=== PATIENT | male | born 1970 | race African-American/Black ===

== ENCOUNTER 2020-02-20 18:48 | Inpatient (IN) ==
[2020-02-20] MEDS ORDERED: SODIUM CHLORIDE 0.9% 500 ML IV STA (19:34)
[2020-02-20 19:43] LABS: Basophils % 0.9 % (0.0-0.8); Hemoglobin 14.5 GM/DL (14.0-18.0); Immature Granulocytes % 0.2 %; Immature Granulocytes Absolute 0.01 #; Lymphocytes # 1.9 10*3/uL (1.4-4.0); Lymphocytes % 43.6 % (21.2-54.2); Mean Corpuscular Volume 83.2 FL (87-102); Mean Platelet Volume 10.5 FL (9.6-12.0); Monocytes % 7.7 % (1.7-12.7); Neutrophils % 47.6 % (38.7-73.9); Platelet Count 202 T/CUMM (130-400); Red Blood Count 5.29 MC/CUMM (3.8-5.5); Red Cell Distribution Width 12.9 % (9.3-17.3); White Blood Count 4.4 T/CUMM (4-12)
[2020-02-20 20:07] LABS: Alanine Aminotransferase 33 U/L (16-61); Albumin 3.8 G/DL (3.4-5.0); Alkaline Phosphatase 65 U/L (45-117); Aspartate Amino Transferase 31 U/L (0-37); Bilirubin,Total < 0.39 MG/DL (0.2-1.0); Blood Urea Nitrogen 14 MG/DL (7-18); Calcium 8.5 MG/DL (8.5-10.1); Estimated Glom Filtration Rate 82 ML/MIN; Glucose 233 MG/DL (74-106); Osmolality,Calculated 275.2 MOS/KG (273-304); Total Protein 8.2 G/DL (6.4-8.3)
[2020-02-20 20:10] LABS: PT Patient Result 10.7 SECS (9.8-11.9)
[2020-02-20 20:12] LABS: Apearance,Urine CLEAR (Clear); Bilirubin,Urine Negative (Negative); Blood, Urine Negative (Negative); Glucose,Urine (UA) 150 mg/dL (Negative); Hyaline Casts,Urine 4 /LPF (0-3); Ketones,Urine 5 mg/dL (Negative); Mucus,Urine Occasional /LPF (Occasional); Nitrite,Urine Negative (Negative); Protein,Urine >=500 MG/DL; Squamous Epithelial Cell,Urine Occasional /HPF (0-10); Urine Color Yellow (Yellow); Urine Specific Gravity 1.027 (1.001-1.035); Urine Urobilinogen < 2.0 EU/DL (0.2-1.0)
[2020-02-20 20:35] LABS: Lymphocytes 42 % (20-55); Myelocytes 2 %; Platelet Estimate Normal; Segmented Neutrophils 51 % (50-85); Total Cells Counted 100
[2020-02-20] MEDS ORDERED: ACETAMINOPHEN 500 MG TABLET PO STA (21:03)
[2020-02-20] MEDS ORDERED: cefTRIAXone 1,000 MG in SODIUM CHLORIDE 0.9% 100 ML IV STA (21:12)
[2020-02-20] MEDS ORDERED: ONDANSETRON 4 MG/2 ML VIAL IV STA (21:47)
[2020-02-20] MEDS ORDERED: GLUCAGON 1 MG VIAL IM PRN (22:10)
[2020-02-20] MEDS ORDERED: DEXTROSE 50% 25 GM/50 ML VIAL IV PRN (22:10)
[2020-02-20] MEDS ORDERED: ALUMINUM/MAGNES/SIMETH MAX STR 30 ML UDCUP PO PRN (22:10)
[2020-02-20] MEDS ORDERED: DEXTROSE 10% 250 ML BAG IV PRN (22:10)
[2020-02-20] MEDS: DOXYCYCLINE HYCLATE INJ 100 MG in SODIUM CHLORIDE 0.9% 100 ML IV SCH (22:53)
[2020-02-20] MEDS: ENOXAPARIN 40 MG/0.4 ML SYRINGE SUBCUT SCH (22:55)
[2020-02-20] MEDS: INSULIN REGULAR 100 UNIT/ML SUBCUT SCH (23:15)
[2020-02-21] MEDS: ALBUTEROL INHALER 18 GM INH SCH ×3 (06:42→22:00)
[2020-02-21 07:06] LABS: Basophils % 0.2 % (0.0-0.8); Hemoglobin 14.2 GM/DL (14.0-18.0); Immature Granulocytes % 0.2 %; Immature Granulocytes Absolute 0.01 #; Lymphocytes % 39.2 % (21.2-54.2); Mean Corpuscular HGB Conc 32.3 GM/DL (32-36); Mean Corpuscular Volume 85.1 FL (87-102); Mean Platelet Volume 10.8 FL (9.6-12.0); Monocytes % 6.3 % (1.7-12.7); Neutrophils % 54.1 % (38.7-73.9); Platelet Count 198 T/CUMM (130-400); Red Blood Count 5.17 MC/CUMM (3.8-5.5); White Blood Count 5.1 T/CUMM (4-12)
[2020-02-21] MEDS: INSULIN REGULAR 100 UNIT/ML SUBCUT SCH ×4 (07:15→22:03)
[2020-02-21 07:21] LABS: Risk Ratio 3.34; VLDL CHOLESTEROL 28.8 MG/DL
[2020-02-21 07:28] LABS: Hypochromasia 1+; Lymphocytes 39 % (20-55); Microcytosis Slight; Platelet Estimate Adequate; Segmented Neutrophils 55 % (50-85); Total Cells Counted 100
[2020-02-21 07:29] LABS: Atypical Lymphocytes Few
[2020-02-21 09:25] LABS: Alanine Aminotransferase 29 U/L (16-61); Albumin 3.3 G/DL (3.4-5.0); Alkaline Phosphatase 59 U/L (45-117); Aspartate Amino Transferase 30 U/L (0-37); Bilirubin,Total < 0.39 MG/DL (0.2-1.0); Blood Urea Nitrogen 14 MG/DL (7-18); Calcium 8.4 MG/DL (8.5-10.1); Estimated Glom Filtration Rate 76 ML/MIN; Ferritin 517.6 ng/ml (26-388); Glucose 186 MG/DL (74-106); Osmolality,Calculated 271.4 MOS/KG (273-304); Total Protein 8.3 G/DL (6.4-8.3)
[2020-02-21] MEDS: HYDROXYCHLOROQUINE 200 MG TABLET PO SCH ×2 (11:08→22:00)
[2020-02-21] MEDS: ACETAMINOPHEN 325 MG TABLET PO PRN ×2 (11:55→22:10)
[2020-02-21] MEDS: DOXYCYCLINE HYCLATE INJ 100 MG in SODIUM CHLORIDE 0.9% 100 ML IV SCH (14:55)
[2020-02-21] MEDS: PROMETHAZINE 25 MG/1 ML VIAL IM PRN (18:01)
[2020-02-21] MEDS: cefTRIAXone 1,000 MG in SYRINGE 1 EACH IV SCH (22:00)
[2020-02-21] MEDS: ENOXAPARIN 40 MG/0.4 ML SYRINGE SUBCUT SCH (22:00)
[2020-02-22] MEDS: ALBUTEROL INHALER 18 GM INH SCH ×4 (02:11→22:17)
[2020-02-22] MEDS: DOXYCYCLINE HYCLATE INJ 100 MG in SODIUM CHLORIDE 0.9% 100 ML IV SCH (02:12)
[2020-02-22 04:40] LABS: Basophils % 0.3 % (0.0-0.8); Hematocrit 42.9 VOL% (42.0-52.0); Immature Granulocytes % 0.2 %; Immature Granulocytes Absolute 0.01 #; Lymphocytes # 1.8 10*3/uL (1.4-4.0); Lymphocytes % 27.6 % (21.2-54.2); Mean Corpuscular HGB Conc 32.6 GM/DL (32-36); Mean Platelet Volume 11.4 FL (9.6-12.0); Monocytes % 5.9 % (1.7-12.7); Platelet Count 201 T/CUMM (130-400); Red Blood Count 5.05 MC/CUMM (3.8-5.5); Red Cell Distribution Width 13.1 % (9.3-17.3); White Blood Count 6.7 T/CUMM (4-12)
[2020-02-22 05:01] LABS: Albumin 2.9 G/DL (3.4-5.0); Bilirubin,Total 0.6 MG/DL (0.2-1.0); Calcium 8.5 MG/DL (8.5-10.1); Ferritin 575.9 ng/ml (26-388); Osmolality,Calculated 274.2 MOS/KG (273-304); Total Protein 7.9 G/DL (6.4-8.3)
[2020-02-22 05:07] LABS: Hypochromasia Slight; Ovalocytes Slight; Platelet Estimate Adequate
[2020-02-22 05:08] LABS: Microcytosis Slight
[2020-02-22] MEDS: ACETAMINOPHEN 325 MG TABLET PO PRN ×3 (06:00→23:05)
[2020-02-22] MEDS ORDERED: ACETAMINOPHEN 500 MG TABLET PO ONE ×2 (06:23→16:07)
[2020-02-22 06:29] LABS: Sedimentation Rate-Westergren 24 MM/HR (0-15)
[2020-02-22 06:53] LABS: ABG Base Excess 0.6 MMOL/L (-2.5-2.5); ABG HCO3 24.9 MMOL/L (20-26); ABG PCO2 35.7 MM HG (35-48); ABG PO2 80.3 MM HG (80-95); ABG TCO2 20.8 MMOL/L (23-27)
[2020-02-22] MEDS ORDERED: ZINC SULFATE 220 MG CAPSULE PO SCH (09:00)
[2020-02-22] MEDS: INSULIN REGULAR 100 UNIT/ML SUBCUT SCH ×3 (09:00→16:37)
[2020-02-22] MEDS ORDERED: HYDROXYCHLOROQUINE 200 MG TABLET PO SCH (09:00)
[2020-02-22] MEDS: DOXYCYCLINE HYCLATE 100 MG CAPSULE PO SCH (16:37)
[2020-02-22] MEDS: PROMETHAZINE 25 MG/1 ML VIAL IM PRN (16:50)
[2020-02-22] MEDS: ENOXAPARIN 40 MG/0.4 ML SYRINGE SUBCUT SCH (22:16)
[2020-02-22] MEDS: cefTRIAXone 1,000 MG in SYRINGE 1 EACH IV SCH (22:24)
[2020-02-23] MEDS: INSULIN REGULAR 100 UNIT/ML SUBCUT SCH ×5 (01:46→21:57)
[2020-02-23] MEDS: ALBUTEROL INHALER 18 GM INH SCH ×4 (01:47→21:22)
[2020-02-23 03:58] LABS: Allen Test Positive; Pt O2 Delivery Device Room Air
[2020-02-23 03:59] LABS: ABG HCO3 21.7 MMOL/L (20-26); ABG Oxygen Saturation 94.2 % (95-100); ABG PCO2 30.6 MM HG (35-48); ABG PH 7.469 (7.35-7.45); ABG TCO2 22.7 MMOL/L (23-27)
[2020-02-23 06:09] LABS: Basophils % 0.4 % (0.0-0.8); Hematocrit 42.3 VOL% (42.0-52.0); Hemoglobin 14.1 GM/DL (14.0-18.0); Immature Granulocytes % 0.4 %; Immature Granulocytes Absolute 0.03 #; Lymphocytes % 23.6 % (21.2-54.2); Mean Corpuscular HGB Conc 33.3 GM/DL (32-36); Mean Corpuscular Volume 82.3 FL (87-102); Mean Platelet Volume 11.6 FL (9.6-12.0); Monocytes % 5.4 % (1.7-12.7); Neutrophils % 70.2 % (38.7-73.9); Platelet Count 199 T/CUMM (130-400); Red Blood Count 5.14 MC/CUMM (3.8-5.5); Red Cell Distribution Width 13.1 % (9.3-17.3); White Blood Count 8.3 T/CUMM (4-12)
[2020-02-23] MEDS ORDERED: ACETAMINOPHEN 500 MG TABLET PO ONE (06:28)
[2020-02-23 06:40] LABS: Band Neutrophils 6 % (0-10); Lymphocytes 19 % (20-55); Platelet Estimate Normal; Segmented Neutrophils 69 % (50-85); Smudge Cells Few; Total Cells Counted 100
[2020-02-23] MEDS: PROMETHAZINE 25 MG/1 ML VIAL IM PRN (07:17)
[2020-02-23 07:25] LABS: Sedimentation Rate-Westergren 10 MM/HR (0-15)
[2020-02-23 07:49] LABS: Albumin 2.7 G/DL (3.4-5.0); Bilirubin,Total 0.6 MG/DL (0.2-1.0); Calcium 8.2 MG/DL (8.5-10.1); Osmolality,Calculated 277.4 MOS/KG (273-304); Total Protein 7.8 G/DL (6.4-8.3)
[2020-02-23] MEDS: DOXYCYCLINE HYCLATE 100 MG CAPSULE PO SCH ×2 (08:59→17:52)
[2020-02-23] MEDS ORDERED: INSULIN GLARGINE 100 UNIT/ML SUBCUT SCH (09:00)
[2020-02-23 09:09] LABS: Ferritin 731.8 ng/ml (26-388)
[2020-02-23] MEDS: TAMSULOSIN 0.4 MG CAPSULE PO SCH (11:09)
[2020-02-23] MEDS: ACETAMINOPHEN 325 MG TABLET PO SCH ×3 (14:10→21:22)
[2020-02-23] MEDS: SODIUM CHLORIDE 0.9% 1,000 ML IV SCH ×2 (14:10→21:28)
[2020-02-23] MEDS: ENOXAPARIN 40 MG/0.4 ML SYRINGE SUBCUT SCH (21:22)
[2020-02-23] MEDS: cefTRIAXone 1,000 MG in SYRINGE 1 EACH IV SCH (21:29)
[2020-02-24] MEDS: ALBUTEROL INHALER 18 GM INH SCH ×4 (01:41→20:12)
[2020-02-24 04:32] LABS: ABG Base Excess -0.6 MMOL/L (-2.5-2.5); ABG HCO3 23.9 MMOL/L (20-26); ABG Oxygen Saturation 96.3 % (95-100); ABG PCO2 33.7 MM HG (35-48); ABG TCO2 19.8 MMOL/L (23-27); Allen Test Positive
[2020-02-24] MEDS: ACETAMINOPHEN 325 MG TABLET PO PRN (05:30)
[2020-02-24] MEDS: SODIUM CHLORIDE 0.9% 1,000 ML IV SCH (05:43)
[2020-02-24 06:37] LABS: Basophils % 0.2 % (0.0-0.8); Hematocrit 38.8 VOL% (42.0-52.0); Immature Granulocytes % 0.9 %; Immature Granulocytes Absolute 0.09 #; Lymphocytes # 1.8 10*3/uL (1.4-4.0); Mean Corpuscular HGB Conc 33.5 GM/DL (32-36); Monocytes % 3.6 % (1.7-12.7); Neutrophils % 78.3 % (38.7-73.9); Platelet Count 236 T/CUMM (130-400); Red Blood Count 4.73 MC/CUMM (3.8-5.5); Red Cell Distribution Width 13.2 % (9.3-17.3); White Blood Count 10.4 T/CUMM (4-12)
[2020-02-24 07:02] LABS: Albumin 2.2 G/DL (3.4-5.0); Bilirubin,Total 0.6 MG/DL (0.2-1.0); Calcium 7.6 MG/DL (8.5-10.1); Ferritin 881.5 ng/ml (26-388); Osmolality,Calculated 277.2 MOS/KG (273-304); Total Protein 7.4 G/DL (6.4-8.3)
[2020-02-24 07:23] LABS: Lymphocytes 14 % (20-55); Platelet Estimate Adequate; Segmented Neutrophils 77 % (50-85); Total Cells Counted 100
[2020-02-24 07:40] LABS: Sedimentation Rate-Westergren 46 MM/HR (0-15)
[2020-02-24] MEDS: DOXYCYCLINE HYCLATE 100 MG CAPSULE PO SCH ×2 (10:02→17:26)
[2020-02-24] MEDS: TAMSULOSIN 0.4 MG CAPSULE PO SCH (10:02)
[2020-02-24] MEDS: INSULIN REGULAR 100 UNIT/ML SUBCUT SCH ×4 (12:28→20:37)
[2020-02-24] MEDS: ACETAMINOPHEN 325 MG TABLET PO SCH ×3 (12:39→21:23)
[2020-02-24] MEDS: INSULIN GLARGINE 100 UNIT/ML SUBCUT SCH (17:00)
[2020-02-24] MEDS: cefTRIAXone 1,000 MG in SYRINGE 1 EACH IV SCH (21:23)
[2020-02-24] MEDS: ENOXAPARIN 40 MG/0.4 ML SYRINGE SUBCUT SCH (22:50)
[2020-02-25] MEDS: ALBUTEROL INHALER 18 GM INH SCH ×4 (00:42→18:00)
[2020-02-25 04:21] LABS: ABG Base Excess 0.4 MMOL/L (-2.5-2.5); ABG HCO3 24.9 MMOL/L (20-26); ABG Oxygen Saturation 94.4 % (95-100); ABG PCO2 39.6 MM HG (35-48); ABG PH 7.416 (7.35-7.45); ABG PO2 73.5 MM HG (80-95); ABG TCO2 26.1 MMOL/L (23-27); Allen Test Positive
[2020-02-25 06:41] LABS: Basophils % 0.6 % (0.0-0.8); Eosinophils # 0.1 10*3/uL (0.0-0.87); Eosinophils % 0.7 % (0.00-10.9); Hematocrit 38.5 VOL% (42.0-52.0); Hemoglobin 12.4 GM/DL (14.0-18.0); Immature Granulocytes % 0.7 %; Immature Granulocytes Absolute 0.05 #; Lymphocytes # 1.5 10*3/uL (1.4-4.0); Lymphocytes % 21.1 % (21.2-54.2); Mean Corpuscular HGB Conc 32.2 GM/DL (32-36); Mean Platelet Volume 10.8 FL (9.6-12.0); Monocytes % 6.7 % (1.7-12.7); Neutrophils % 70.2 % (38.7-73.9); Platelet Count 252 T/CUMM (130-400); Red Blood Count 4.53 MC/CUMM (3.8-5.5); Red Cell Distribution Width 13.3 % (9.3-17.3); White Blood Count 6.9 T/CUMM (4-12)
[2020-02-25] MEDS: SODIUM CHLORIDE 0.9% 1,000 ML IV SCH ×5 (07:11→17:04)
[2020-02-25 07:27] LABS: Alanine Aminotransferase 36 U/L (16-61); Albumin 1.9 G/DL (3.4-5.0); Alkaline Phosphatase 50 U/L (45-117); Aspartate Amino Transferase 60 U/L (0-37); Bilirubin,Total < 0.39 MG/DL (0.2-1.0); Blood Urea Nitrogen 26 MG/DL (7-18); Calcium 7.8 MG/DL (8.5-10.1); Estimated Glom Filtration Rate 82 ML/MIN; Glucose 109 MG/DL (74-106); Total Protein 6.9 G/DL (6.4-8.3)
[2020-02-25] MEDS: TAMSULOSIN 0.4 MG CAPSULE PO SCH (08:34)
[2020-02-25] MEDS: INSULIN REGULAR 100 UNIT/ML SUBCUT SCH ×4 (08:34→21:57)
[2020-02-25] MEDS: ACETAMINOPHEN 325 MG TABLET PO SCH ×3 (08:34→21:35)
[2020-02-25] MEDS: INSULIN GLARGINE 100 UNIT/ML SUBCUT SCH (08:34)
[2020-02-25] MEDS: DOXYCYCLINE HYCLATE 100 MG CAPSULE PO SCH ×2 (08:34→16:05)
[2020-02-25 08:37] LABS: Sedimentation Rate-Westergren 85 MM/HR (0-15)
[2020-02-25 12:33] LABS: Lymphocytes 18 % (20-55); Platelet Estimate Normal; Segmented Neutrophils 78 % (50-85)
[2020-02-25 12:34] LABS: Total Cells Counted 100
[2020-02-25] MEDS: ASCORBIC ACID 500 MG TABLET PO SCH (21:35)
[2020-02-25] MEDS: ENOXAPARIN 40 MG/0.4 ML SYRINGE SUBCUT SCH (21:57)
[2020-02-25] MEDS: cefTRIAXone 1,000 MG in SYRINGE 1 EACH IV SCH (22:20)
[2020-02-26] MEDS: ALBUTEROL INHALER 18 GM INH SCH ×4 (01:06→20:18)
[2020-02-26] MEDS: SODIUM CHLORIDE 0.9% 1,000 ML IV SCH ×2 (03:30→16:33)
[2020-02-26 05:10] LABS: ABG Base Excess 0.6 MMOL/L (-2.5-2.5); ABG HCO3 24.9 MMOL/L (20-26); ABG PCO2 38.5 MM HG (35-48); ABG PH 7.419 (7.35-7.45); ABG PO2 70.6 MM HG (80-95); Allen Test Positive
[2020-02-26 06:27] LABS: Basophils % 0.7 % (0.0-0.8); Eosinophils # 0.1 10*3/uL (0.0-0.87); Eosinophils % 1.6 % (0.00-10.9); Hematocrit 37.1 VOL% (42.0-52.0); Hemoglobin 11.8 GM/DL (14.0-18.0); Immature Granulocytes % 0.7 %; Immature Granulocytes Absolute 0.04 #; Lymphocytes # 1.4 10*3/uL (1.4-4.0); Lymphocytes % 25.5 % (21.2-54.2); Mean Corpuscular HGB Conc 31.8 GM/DL (32-36); Mean Corpuscular Volume 85.3 FL (87-102); Mean Platelet Volume 10.7 FL (9.6-12.0); Monocytes % 8.4 % (1.7-12.7); Neutrophils % 63.1 % (38.7-73.9); Platelet Count 294 T/CUMM (130-400); Red Blood Count 4.35 MC/CUMM (3.8-5.5); Red Cell Distribution Width 13.2 % (9.3-17.3); White Blood Count 5.5 T/CUMM (4-12)
[2020-02-26 06:49] LABS: Alanine Aminotransferase 40 U/L (16-61); Albumin 1.8 G/DL (3.4-5.0); Alkaline Phosphatase 57 U/L (45-117); Aspartate Amino Transferase 56 U/L (0-37); Bilirubin,Total < 0.39 MG/DL (0.2-1.0); Blood Urea Nitrogen 25 MG/DL (7-18); Estimated Glom Filtration Rate 65 ML/MIN; Ferritin 943.1 ng/ml (26-388); Glucose 126 MG/DL (74-106); Osmolality,Calculated 278.8 MOS/KG (273-304); Total Protein 6.6 G/DL (6.4-8.3)
[2020-02-26 07:43] LABS: Sedimentation Rate-Westergren 97 MM/HR (0-15)
[2020-02-26] MEDS: INSULIN GLARGINE 100 UNIT/ML SUBCUT SCH (09:30)
[2020-02-26] MEDS: ZINC GLUCONATE 50 MG TABLET PO SCH (09:30)
[2020-02-26] MEDS: DOXYCYCLINE HYCLATE 100 MG CAPSULE PO SCH ×2 (09:30→16:50)
[2020-02-26] MEDS: CHOLECALCIFEROL 1,000 UNIT TABLET PO SCH (09:30)
[2020-02-26] MEDS: ACETAMINOPHEN 325 MG TABLET PO SCH ×3 (09:30→20:51)
[2020-02-26] MEDS: ASCORBIC ACID 500 MG TABLET PO SCH ×2 (09:30→20:51)
[2020-02-26] MEDS: TAMSULOSIN 0.4 MG CAPSULE PO SCH (09:30)
[2020-02-26] MEDS: PROMETHAZINE 25 MG/1 ML VIAL IM PRN (10:25)
[2020-02-26] MEDS: INSULIN REGULAR 100 UNIT/ML SUBCUT SCH ×4 (10:38→20:51)
[2020-02-26] MEDS ORDERED: ONDANSETRON 4 MG/2 ML VIAL IV PRN (10:53)
[2020-02-26 11:53] LABS: Anisocytosis 1+; Hypochromasia 1+; Microcytosis 1+; Polychromasia Slight; Schistocytes Slight
[2020-02-26 11:54] LABS: Platelet Estimate Adequate
[2020-02-26] MEDS: cefTRIAXone 1,000 MG in SYRINGE 1 EACH IV SCH (20:52)
[2020-02-26] MEDS: ENOXAPARIN 40 MG/0.4 ML SYRINGE SUBCUT SCH (20:53)
[2020-02-27] MEDS: ALBUTEROL INHALER 18 GM INH SCH ×4 (01:16→18:24)
[2020-02-27] MEDS: SODIUM CHLORIDE 0.9% 1,000 ML IV SCH ×3 (01:30→23:13)
[2020-02-27 04:59] LABS: ABG Base Excess -0.7 MMOL/L (-2.5-2.5); ABG HCO3 23.8 MMOL/L (20-26); ABG Oxygen Saturation 95.3 % (95-100); ABG PCO2 37.6 MM HG (35-48); ABG PH 7.406 (7.35-7.45); ABG PO2 78.8 MM HG (80-95); ABG TCO2 20.2 MMOL/L (23-27); Allen Test Positive
[2020-02-27 06:32] LABS: Basophils % 0.7 % (0.0-0.8); Eosinophils # 0.1 10*3/uL (0.0-0.87); Eosinophils % 1.8 % (0.00-10.9); Hematocrit 35.5 VOL% (42.0-52.0); Hemoglobin 11.3 GM/DL (14.0-18.0); Immature Granulocytes % 0.8 %; Immature Granulocytes Absolute 0.05 #; Lymphocytes # 1.5 10*3/uL (1.4-4.0); Mean Corpuscular HGB Conc 31.8 GM/DL (32-36); Mean Corpuscular Volume 86.4 FL (87-102); Mean Platelet Volume 10.1 FL (9.6-12.0); Monocytes % 8.7 % (1.7-12.7); Platelet Count 328 T/CUMM (130-400); Red Blood Count 4.11 MC/CUMM (3.8-5.5); Red Cell Distribution Width 13.3 % (9.3-17.3)
[2020-02-27 07:01] LABS: Atypical Lymphocytes Few; Eosinophils 5 % (0-10); Hypochromasia 1+; Lymphocytes 23 % (20-55); Microcytosis 1+; Segmented Neutrophils 66 % (50-85); Total Cells Counted 100
[2020-02-27 07:02] LABS: Platelet Estimate Normal
[2020-02-27 08:00] LABS: Sedimentation Rate-Westergren 81 MM/HR (0-15)
[2020-02-27] MEDS: INSULIN REGULAR 100 UNIT/ML SUBCUT SCH ×4 (08:48→22:10)
[2020-02-27] MEDS: ACETAMINOPHEN 325 MG TABLET PO SCH ×3 (08:50→22:31)
[2020-02-27] MEDS: ZINC GLUCONATE 50 MG TABLET PO SCH (08:50)
[2020-02-27] MEDS: ASCORBIC ACID 500 MG TABLET PO SCH ×2 (08:51→22:32)
[2020-02-27] MEDS: ENOXAPARIN 40 MG/0.4 ML SYRINGE SUBCUT SCH ×2 (08:51→22:30)
[2020-02-27] MEDS: CHOLECALCIFEROL 1,000 UNIT TABLET PO SCH (08:51)
[2020-02-27] MEDS: TAMSULOSIN 0.4 MG CAPSULE PO SCH (08:51)
[2020-02-27] MEDS: INSULIN GLARGINE 100 UNIT/ML SUBCUT SCH (08:52)
[2020-02-27] MEDS ORDERED: ERGOCALCIFEROL 50,000 UNIT CAPSULE PO SCH (09:00)
[2020-02-27 09:33] LABS: Albumin 1.7 G/DL (3.4-5.0); Bilirubin,Total 0.5 MG/DL (0.2-1.0); Calcium 8.1 MG/DL (8.5-10.1); Ferritin 940.1 ng/ml (26-388); Osmolality,Calculated 283.4 MOS/KG (273-304); Total Protein 6.5 G/DL (6.4-8.3)
[2020-02-27] MEDS: DOCUSATE SODIUM 100 MG CAPSULE PO SCH (22:28)
[2020-02-27] MEDS: POLYETHYLENE GLYCOL POWDER 17 GM PACK PO SCH (22:31)
[2020-02-28] MEDS: ALBUTEROL INHALER 18 GM INH SCH ×4 (01:49→19:30)
[2020-02-28 04:06] LABS: ABG Base Excess -0.8 MMOL/L (-2.5-2.5); ABG HCO3 23.6 MMOL/L (20-26); ABG Oxygen Saturation 92.9 % (95-100); ABG PCO2 37.3 MM HG (35-48); ABG PH 7.408 (7.35-7.45); ABG PO2 67.4 MM HG (80-95); Allen Test Positive
[2020-02-28] MEDS: INSULIN REGULAR 100 UNIT/ML SUBCUT SCH ×4 (08:10→21:29)
[2020-02-28] MEDS: INSULIN GLARGINE 100 UNIT/ML SUBCUT SCH (08:33)
[2020-02-28] MEDS: ASCORBIC ACID 500 MG TABLET PO SCH ×2 (08:33→21:32)
[2020-02-28] MEDS: ENOXAPARIN 40 MG/0.4 ML SYRINGE SUBCUT SCH ×2 (08:33→21:33)
[2020-02-28] MEDS: POLYETHYLENE GLYCOL POWDER 17 GM PACK PO SCH ×2 (08:33→21:33)
[2020-02-28] MEDS: DOCUSATE SODIUM 100 MG CAPSULE PO SCH ×2 (08:34→21:32)
[2020-02-28] MEDS: ACETAMINOPHEN 325 MG TABLET PO SCH ×3 (08:34→21:30)
[2020-02-28] MEDS: CHOLECALCIFEROL 1,000 UNIT TABLET PO SCH (08:34)
[2020-02-28] MEDS: ZINC GLUCONATE 50 MG TABLET PO SCH (08:35)
[2020-02-28] MEDS: TAMSULOSIN 0.4 MG CAPSULE PO SCH (08:35)
[2020-02-28] MEDS: SODIUM CHLORIDE 0.9% 1,000 ML IV SCH (09:02)
[2020-02-29] MEDS: ALBUTEROL INHALER 18 GM INH SCH ×4 (01:43→18:07)
[2020-02-29 04:45] LABS: ABG Base Excess -1.7 MMOL/L (-2.5-2.5); ABG HCO3 22.4 MMOL/L (20-26); ABG Oxygen Saturation 93.7 % (95-100); ABG PCO2 35.5 MM HG (35-48); ABG PH 7.417 (7.35-7.45); ABG PO2 72.4 MM HG (80-95); ABG TCO2 23.4 MMOL/L (23-27)
[2020-02-29 06:39] LABS: Calcium 7.8 MG/DL (8.5-10.1); Osmolality,Calculated 286.8 MOS/KG (273-304)
[2020-02-29] MEDS ORDERED: POTASSIUM CHLORIDE 20 MEQ TABLET PO PRN (07:49)
[2020-02-29] MEDS: ASCORBIC ACID 500 MG TABLET PO SCH ×2 (08:45→20:41)
[2020-02-29] MEDS: CHOLECALCIFEROL 1,000 UNIT TABLET PO SCH (08:45)
[2020-02-29] MEDS: ZINC GLUCONATE 50 MG TABLET PO SCH (08:45)
[2020-02-29] MEDS: TAMSULOSIN 0.4 MG CAPSULE PO SCH ×2 (08:45→09:40)
[2020-02-29] MEDS: DOCUSATE SODIUM 100 MG CAPSULE PO SCH ×2 (08:45→20:41)
[2020-02-29] MEDS: INSULIN REGULAR 100 UNIT/ML SUBCUT SCH ×4 (09:13→20:37)
[2020-02-29] MEDS: ENOXAPARIN 40 MG/0.4 ML SYRINGE SUBCUT SCH (09:14)
[2020-02-29] MEDS: INSULIN GLARGINE 100 UNIT/ML SUBCUT SCH (09:14)
[2020-02-29] MEDS: POLYETHYLENE GLYCOL POWDER 17 GM PACK PO SCH ×2 (09:15→20:41)
[2020-02-29] MEDS: ACETAMINOPHEN 325 MG TABLET PO SCH ×3 (09:39→20:41)
[2020-02-29] MEDS: POTASSIUM CHLORIDE RIDER 10 MEQ in PREMIX 1 EACH IV PRN ×2 (14:30→16:10)
[2020-03-01] MEDS: ALBUTEROL INHALER 18 GM INH SCH ×3 (00:22→13:04)
[2020-03-01] MEDS: TAMSULOSIN 0.4 MG CAPSULE PO SCH (09:25)
[2020-03-01] MEDS: ZINC GLUCONATE 50 MG TABLET PO SCH (09:25)
[2020-03-01] MEDS: ASCORBIC ACID 500 MG TABLET PO SCH (09:25)
[2020-03-01] MEDS: CHOLECALCIFEROL 1,000 UNIT TABLET PO SCH (09:25)
[2020-03-01] MEDS: INSULIN GLARGINE 100 UNIT/ML SUBCUT SCH (09:25)
[2020-03-01] MEDS: ACETAMINOPHEN 325 MG TABLET PO SCH ×2 (09:25→15:18)
[2020-03-01] MEDS ORDERED: POLYETHYLENE GLYCOL POWDER 17 GM PACK PO PRN (11:10)
[2020-03-01] MEDS: DOCUSATE SODIUM 100 MG CAPSULE PO SCH (11:18)
[2020-03-01] MEDS: INSULIN REGULAR 100 UNIT/ML SUBCUT SCH ×2 (11:18→13:04)
[2020-03-01] MEDS: POLYETHYLENE GLYCOL POWDER 17 GM PACK PO SCH (11:19)
[2020-03-01 13:03] VITALS: BP 155/95
[2020-03-01] MEDS ORDERED: RIVAROXABAN 10 MG TABLET PO SCH (21:00)
== END 2020-03-01 15:46 | disposition home health service (06) | DRG 177 ==
LOC: N.ED 18:48 → SUATTDRO 22:10 → N.EDINP 22:10 → N.2E 02-21 10:47
PROVIDERS: ADMIT Internal Medicine; ATTEND Hospitalist